=== PATIENT | female | born 1990 ===

== ENCOUNTER 2018-08-08 09:55 | Emergency (ER) | payer OTHER ==
[~2018-08-08] VITALS: Ht 157.5 cm; Wt 72.7 kg
[2018-08-08 10:29] LABS: URINE BILIRUBIN - DIPSTICK NEGATIVE (NEGATIVE); URINE BLOOD DIPSTICK NEGATIVE (NEGATIVE); URINE COLOR YELLOW; URINE GLUCOSE - DIPSTICK NEGATIVE (NEGATIVE); URINE KETONE NEGATIVE (NEGATIVE); URINE NITRITE - DIPSTICK NEGATIVE (Negative); URINE PH 6.5 (4.5-8.0); URINE PROTEIN - DIPSTICK NEGATIVE (NEG-TRACE); URINE SPECIFIC GRAVITY 1.025; URINE UROBILINOGEN - DIPSTICK 0.2 E.U./dL (0.2)
[2018-08-08 10:30] LABS: URINE LEUK ESTERASE SMALL (NEGATIVE)
[2018-08-08 10:31] LABS: URINE BACTERIA FEW hpf; URINE CLARITY SL CLOUDY; URINE EPITHELIAL CELLS FEW EPI/hpf (0-FEW)
[2018-08-08 10:39] LABS: BARBITURATES NEGATIVE (NEGATIVE); COCAINE NEGATIVE (NEGATIVE); METHADONE NEGATIVE (NEGATIVE); OXCYCODONE NEGATIVE (NEGATIVE); TETRAHYDROCANNABIONOL NEGATIVE (NEGATIVE); TRICYLIC ANTIDEPRESSANTS NEGATIVE (NEGATIVE)
[2018-08-08] MEDS ORDERED: TORADOL PO ×2 (11:04→11:10)
[2018-08-08] MEDS ORDERED: BACTRIM DS1 TAB PO ×2 (11:04→11:10)
[2018-08-08] MEDS ORDERED: FLEXERIL PO ×2 (11:04→11:10)
[2018-08-08 11:06] VITALS: BP 132/92
== END 2018-08-08 11:14 | disposition home or self-care (01) ==
LOC: ED 09:55
PROVIDERS: Emergency Medicine
DX: S39.012A Strain of muscle, fascia and tendon of lower back, initial encounter (principal); N39.0 Urinary tract infection, site not specified; F17.210 Nicotine dependence, cigarettes, uncomplicated; X58.XXXA Exposure to other specified factors, initial encounter; M54.6 Pain in thoracic spine; B96.20 Unspecified Escherichia coli [E. coli] as the cause of diseases classified elsewhere